=== PATIENT | male | born 1935 | race Caucasian/White ===

== ENCOUNTER 2019-05-31 08:58 | Emergency (ER) | payer OTHER, MEDICARE ==
[2019-05-31 09:25] VITALS: PULSE 62; TEMP 98.3; BMI 22.4
--- NOTE | 2019-05-31 09:52 | PDOC ---
Attending Attestation - Resident Resident Name: PitoRemy - ED Attending Attestation I have performed the following: I have examined & evaluated the patient, The case was reviewed & discussed with the resident, I agree w/resident's findings & plan, Exceptions are as noted - HPI HPI: 05/31/19 09:50 83 M with h/o AVR, HTN, HLD, presenting to ED with elevated INR. Pt states that he had his INR checked yesterday and it came out to be 11. Pt denies any bleeding. Denies BRBPR/dark stools. No complaints at this time. Pt state he is taking coumadin 5mg daily, last dose last night. No new medications, abx, or supplements. - Physicial Exam PE: 05/31/19 09:52 "GENERAL: Awake, alert, and fully oriented, in no acute distress. HEAD: No signs of trauma EYES: PERRLA, EOMI, sclera anicteric, conjunctiva clear ENT: Auricles normal inspection, hearing grossly normal, nares patent, oropharynx clear without exudates. Moist mucosa NECK: Nontender, no stepoffs, Normal ROM, supple, no lymphadenopathy, JVD, or masses LUNGS: Breath sounds equal, clear to auscultation bilaterally. No wheezes, and no crackles HEART: Regular rate and rhythm, normal S1 and S2, no murmurs, rubs or gallops ABDOMEN: Soft, nontender, normoactive bowel sounds. No guarding, no rebound. No masses EXTREMITIES: Normal range of motion, no edema. No clubbing or cyanosis. No cords, erythema, or tenderness NEUROLOGICAL: Cranial nerves II through XII intact. 5/5 strength and sensation in all extremities, Normal speech, normal gait, normal cerebellar function SKIN: Warm, Dry, normal turgor, no rashes or lesions noted. - Medical Decision Making 05/31/19 09:52 84 M with elevated INR. No s/s of bleeding. pt not taking any new meds or supplements to interfere with his coumadin. - Recheck INR - Vit K as needed 05/31/19 10:48 INR 7 today, improved since yesterday. Pt given Vit K 2.5mg PO Instructed to hold next dose of coumadin and f/u with PMD for INR check tomorrow Pt also counseled on his elevated BP, which he states is a chronic problem for him. Pt is well appearing, with normal vitals. Clinically stable for DC at this time. I discussed the physical exam findings, ancillary test results and final diagnoses with the patient. I answered all of the patient's questions. The patient was satisfied with the care received and felt comfortable with the discharge plan and treatment plan. The patient agrees to follow up with the primary care physician within 24-72 hours.
[2019-05-31] MEDS ORDERED: PHYTONADIONE 5 MG TABLET PO ONE (09:53)
--- NOTE | 2019-05-31 10:08 | PDOC ---
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 Pt states he received a call from [facility] this AM stating his elevated INR taken yesterday and instructed to take vitamin K and have it rechecked in the ED this am. Prior INR last week was 4, no recent change in dosage of warfarin (on 5 mg daily) denies bleeding hx, bleeding while brushing teeth today, dark or bright red stools, dizziness, weakness, recent illness, chest pain, shortness of breath. <Remy Sheldon - Last Filed: 05/31/19 11:00> - General Chief Complaint: Revisit, Lab Variance Stated Complaint: HIGH INR Time Seen by Provider: 05/31/19 09:02 Past History <Josh Fuentes - Last Filed: 05/31/19 10:53> - Past Medical History Cardiac Disorders: Yes (atrial fibrillation) CVA: No COPD: No CHF: Yes Diabetes: Yes Disorders: Yes (BPH, PROSTATE SURGERY) HTN: Yes Kidney Stones: Yes Other medical history: GLAUCOMA, MEDEL'S PALSEY - Surgical History Cardiac Surgery: Yes (MV REPAIR, AV BOVINE VALVE, AORTA REPAIR) - Psycho Social/Smoking Cessation Hx Smoking History: Former smoker Have you smoked in the past 12 months: No If you are a former smoker, when did you quit?: 1969 Information on smoking cessation initiated: No Hx Alcohol Use: Yes Drug/Substance Use Hx: No <Remy Sheldon - Last Filed: 05/31/19 11:00> - Past Medical History Allergies/Adverse Reactions: Allergies Allergy/AdvReac Type Severity Reaction Status Date / Time No Known Allergies Allergy Verified 05/31/19 09:31 Home Medications: Ambulatory Orders metFORMIN HCL [Metformin HCl] 500 mg PO BID 05/05/15 Amlodipine Besylate/Benazepril [Lotrel ] 1 each PO DAILY 05/31/19 Dorzolamide/Timolol/Pf [Dorzolamide-Timolol 2%-0.5%] 1 each OP HS 05/31/19 Ethacrynic Acid [Edecrin] 12.5 mg PO DAILY 05/31/19 Phytonadione (Vit K1) [Vitamin K] 100 mcg PO ONCE 05/31/19 Warfarin Na [Coumadin] 5 mg PO DAILY@1800 05/31/19 Review of Systems - Review of Systems Constitutional: No: Chills, Fever Respiratory: No: Shortness of Breath Cardiac (ROS): No: Chest Pain, Edema, Lightheadedness ABD/GI: No: Abdominal Distended, Constipated, Diarrhea, Nausea : No: Burning, Dysuria, Frequency, Flank Pain, Hematuria Musculoskeletal: No: Back Pain Integumentary: No: Bruising, Change in Color Neurological: No: Headache, Weakness, Unsteady Gait, Dizziness <Remy Sheldon - Last Filed: 05/31/19 11:00> *Physical Exam - Vital Signs Last Vital Signs Temp Pulse Resp BP Pulse Ox 98.3 F 62 19 189/81 H 100 05/31/19 09:00 05/31/19 09:00 05/31/19 09:00 05/31/19 09:00 05/31/19 09:00 <Josh Fuentes - Last Filed: 05/31/19 10:53> - Vital Signs Last Vital Signs Temp Pulse Resp BP Pulse Ox 98.3 F 62 19 189/81 H 100 05/31/19 09:00 05/31/19 09:00 05/31/19 09:00 05/31/19 09:00 05/31/19 09:00 - Physical Exam General Appearance: Yes: Nourished, Appropriately Dressed. No: Apparent Distress HEENT: positive: EOMI. negative: Pale Conjunctivae Neck: positive: Supple. negative: Carotid bruit Respiratory/Chest: positive: Lungs Clear, Normal Breath Sounds. negative: Accessory Muscle Use, Crackles, Rales, Rhonchi, Stridor, Wheezing Cardiovascular: positive: Regular Rhythm, Regular Rate, S1, S2. negative: Edema , JVD, Murmur Vascular Pulses: Dorsalis-Pedis (R): 4+, Doralis-Pedis (L): 4+ Gastrointestinal/Abdominal: positive: Flat, Soft. negative: Pulsatile Mass, Protuberent, Distended, Guarding, Rebound, Tenderness Musculoskeletal: negative: CVA Tenderness Extremity: positive: Normal Capillary Refill, Normal Inspection Integumentary: positive: Normal Color, Dry, Warm. negative: Pale, Swelling, Ecchymosis, Bruising Neurologic: positive: Fully Oriented, Alert, Normal Mood/Affect, Normal Response , Motor Strength 5/5 <Remy Sheldon - Last Filed: 05/31/19 11:00> ED Treatment Course - ADDITIONAL ORDERS Additional order review: Laboratory Results 05/31/19 05/31/19 10:20 09:33 PT with INR 81.1 H Cancelled INR 7.53 H* Cancelled - Medications Given in the ED: ED Medications Discontinued Medications Generic Name Dose Route Start Last Admin Trade Name Marie PRN Reason Stop Dose Admin Phytonadione 2.5 mg 05/31/19 09:53 05/31/19 10:05 Mephyton - PO 05/31/19 09:54 2.5 mg ONCE ONE Administration <Josh Fuentes - Last Filed: 05/31/19 10:53> Medical Decision Making - Medical Decision Making 05/31/19 10:30 84 yo male pmh a fib (s/p maze procedure, 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 Pt states he received a call from [facility] this AM stating his elevated INR taken yesterday and instructed to take vitamin K and have it rechecked in the ED this am. Prior INR last week was 4, no recent change in dosage of warfarin (on 5 mg daily) denies bleeding hx, bleeding while brushing teeth today, dark or bright red stools, dizziness, weakness, recent illness, chest pain, shortness of breath. vitals show elevated BP, will reassess prior to DC Will give 2.5 mg vitamin K and recheck INR 05/31/19 10:58 INR 7.5, pt asymptomatic. Recommend stopping warfarin, have INR rechecked tomorrow and follow with PMD and Cardiology with strict return precautions. Pt aware, understands and agrees with plan. Safe for DC home <Remy Sheldon - Last Filed: 05/31/19 11:00> Discharge <Josh Fuentes - Last Filed: 05/31/19 10:53> - Discharge Information Problems reviewed: Yes - Admission No <Remy Sheldon - Last Filed: 05/31/19 11:00> - Discharge Information Clinical Impression/Diagnosis: Elevated INR Condition: Good Disposition: HOME - Patient Discharge Instructions Patient Printed Discharge Instructions: Warfarin Additional Instructions: Please stop taking Warfarin and have your INR rechecked tomorrow with your Primary Doctor. Continue taking the rest of your medication. Update your [facility] regarding your INR of 7.5. You were given 2.5 mg of Vitamin K while in the ER. Return to the ER for new or concerning symptoms including but not limited to: bleeding from gums, dark stools, bright blood in stools, weakness, dizziness. You also need to have your blood pressure re-checked by your primary doctor, as it was slightly elevated today. Uncontrolled blood pressure can eventually lead to kidney disease, heart disease, other serious illness, disability, or even . Thank you
[2019-05-31 10:40] LABS: PROTHROMBIN TIME (PATIENT) 81.1 SEC (10.2-13.0)
[2019-05-31 10:45] LABS: INR 7.53 (0.82-1.09)
[2019-05-31 10:56] VITALS: BP 182/65
== END 2019-05-31 11:11 | disposition home or self-care (01) ==
LOC: FER 08:58
DX: D68.9 Coagulation defect, unspecified (principal); Z79.01 Long term (current) use of anticoagulants; I48.91 Unspecified atrial fibrillation; Z95.2 Presence of prosthetic heart valve; Z87.891 Personal history of nicotine dependence; I10 Essential (primary) hypertension; Z87.442 Personal history of urinary calculi; H40.9 Unspecified glaucoma; G51.0 Bell's palsy; N40.0 Benign prostatic hyperplasia without lower urinary tract symptoms; I50.9 Heart failure, unspecified
CPT/HCPCS: 36415; 85610; 99281-25